=== PATIENT | male | born 2000 | race Caucasian/White ===

== ENCOUNTER 2019-09-30 17:02 | Emergency (ER) | payer OTHER, MEDICAID ==
--- OUTSIDE RECORDS SUMMARY | 2019-09-30 17:11 | XMS REPORT | Summary of Care ---
:2000 Author Organization [facility] Address [address] [place] [address] Care Team Providers Name Role Phone Janes Medina MD Primary Care Provider Encounter Details Date Type Department Care Team Description 08/20/2019 Hospital Encounter [facility] Clinical Status post kidney transplant; Pathology at Kidney replaced by transplant [facility] [address] [place] [address] Allergies No Known Allergiesdocumented as of this encounter (statuses as of 08/21/2019) Medications Medication Sig Dispensed Refills Start Date End Date Status metoprolol (TOPROL-XL) Take 1 tablet 30 tablet 5 02/28/2019 02/28/2020 Active 100 MG 24 hr by mouth tabletIndications: nightly Kidney replaced by transplant, Hypertension associated with transplantation sodium chloride flush Inject 10 mLs 100 Syringe 5 03/14/2019 Active 0.9 % SOLN into the vein as needed (prn for before and after infusion and prn) mycophenolic acid Take 2 tablets 120 tablet 5 03/26/2019 Active (MYFORTIC) 180 MG by mouth Two delayed-release Times Daily tabletIndications: Kidney replaced by transplant tacrolimus (PROGRAF) 1 Take 2 capsules 120 capsule 5 03/30/20192019 Active MG capsuleIndications: by mouth Two Kidney replaced by Times Daily transplant losartan (COZAAR) 50 Take 1 tablet 30 tablet 5 05/07/2019 05/05/2020 Active MG tabletIndications: by mouth daily Status post kidney transplant, 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 pantoprazole Take 1 tablet 30 tablet 5 05/07/2019 05/05/2020 Active (PROTONIX) 20 MG by mouth daily tabletIndications: Status post kidney transplant predniSONE 5 MG Oral Take 1 tablet 30 tablet 5 06/25/2019 Active Tablet by mouth daily (DELTASONE)Indications : Kidney replaced by transplant amLODIPine Besylate 10 Take 1 tablet 30 tablet 5 08/20/2019 08/18/2020 Active MG Oral Tablet by mouth daily (NORVASC)Indications: Kidney replaced by transplant, Secondary hypertension due to renal disease documented as of this encounter (statuses as of 08/21/2019) Active Problems Problem Noted Date NICHOLAS (acute kidney injury) 02/26/2019 History of right inguinal hernia 04/12/2017 Renal transplant recipient 01/18/2016 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 Hyperparathyroidism due to renal insufficiency 02/13/2015 CKD (chronic kidney disease) requiring chronic dialysis 08/11/2014 Hyperphosphatemia 08/11/2014 HTN (hypertension) 08/11/2014 S/p nephrectomy bilateral 10/21/2013 Hemolytic-uremic syndrome, 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 Immunosuppressive management encounter following kidney transplant documented as of this encounter (statuses as of 08/21/2019) Resolved Problems Problem Noted Date Resolved Date Kidney transplant candidate 01/18/2016 01/22/2016 Hypertension 12/03/2014 12/03/2014 Chronic kidney disease, stage II (mild) 08/08/2012 04/05/2014 documented as of this encounter (statuses as of 08/21/2019) Immunizations Name Administration Dates Next Due [id number] Quadrivalent >= 3yo 05/11/2015 Influenza Quad IM Pres Free (0.5 mL dose) 08/20/2019 08/20/2020 Influenza Split Trivalent preservative free 05/08/2018, 05/03/2016 05/08/2019 documented as of this encounter Social History Tobacco Use Types Packs/Day Years Used Date Never Smoker Smokeless Tobacco: Never Used Alcohol Use Drinks/Week oz/Week Comments No Sex Assigned at Date Recorded Not on file Job Start Date Occupation Industry Not on file Not on file Not on file Travel History Travel Start Travel End No recent travel history available. documented as of this encounter Last Filed Vital Signs Not on filedocumented in this encounter Plan of Treatment Date Type Specialty Care Team Description 10/01/2019 Follow-Up Transplant Amanuel Blancas MD [address] [facility] [address] [place] [address] [phone] Name Type Priority Associated Diagnoses Date/Time BK quantitative PCR Lab Routine Status post kidney 08/20/2019 8:15 AM EST transplant Name Type Priority Associated Diagnoses Order Schedule BK quantitative PCR Lab Timed Status post kidney As Needed for 1 transplant Occurrences starting 08/20/2019 until 08/20/2019 Health Maintenance Due Date Last Done Comments MMR Vaccines (1 of 1 - 11/09/1999 Standard series) Varicella Vaccines (1 of 2 - 11/09/1999 2-dose childhood series) Pneumococcal Vaccine: 2004 Pediatrics (0 to 5 Years) and At-Risk Patients (6 to 64 Years) (1 of 3 - PCV13) DTaP,Tdap,and Td Vaccines (1 2005 - Tdap) HPV Vaccines (1 - Male 2-dose 2009 series) Pneumococcal Vaccine: 65+ 11/09/2063 Years (1 of 2 - PCV13) HIV Screening Completed 01/18/2016, 12/03/2015 Influenza Vaccine Completed 08/20/2019, 05/08/2018, 05/03/2016 HIB Vaccines Aged Out No longer eligible based on patient's age to complete this topic Hepatitis A Vaccines Aged Out No longer eligible based on patient's age to complete this topic Hepatitis B Vaccines Aged Out No longer eligible based on patient's age to complete this topic IPV Vaccines Aged Out No longer eligible based on patient's age to complete this topic documented as of this encounter Implants Implanted Type Area Dairy Tester Device Shelf Model / Identifier Expiration Date Serial / Lot Dial- Proguide- 14.5fr X 23cmttc - [id number] Right: [facility] 2015 [id number] / Implanted: Qty: 1 on 10/21/2013 by Yonis Espinoza MD at [facility] 3N Neck SYSTEMS / [id number] Description:HEMODIALYSIS CATHETER Cath Radha Flx Arc 2 Cf Adlt - [id number] N/A: Abdomen MEDIGROUP 08/30/2014 [id number] / Implanted: Qty: 1 on 10/21/2013 by Yonis Espinoza MD at OR 3N / [id number] Dial- Proguide- 14.5fr X 23cmttc - [id number] Right: Neck [employer] [id number] / Implanted: Qty: 1 on 08/11/2014 by Manda Ashford MD at OR [employer] / [id number] Dial-Decathlon Df 16fr X 19ttc - [id number] Right: Vein [employer] [id number] / Implanted: Qty: 1 on 03/01/2019 by Shaan Weiner MD at OR [facility] [id number] / [id number] documented as of this encounter Procedures Procedure Name Priority Date/Time Associated Comments Diagnosis DSA SCREEN, HOLD Routine 08/20/2019 8:15 Status post kidney Results for this AM EST transplant procedure are in the results section. CBC AND DIFFERENTIAL Routine 08/20/2019 8:15 Kidney replaced by Results for this AM EST transplant procedure are in the results section. ALT Routine 08/20/2019 8:15 Results for this AM EST procedure are in the results section. AST Routine 08/20/2019 8:15 Results for this AM EST procedure are in the results section. PROTEIN, TOTAL Routine 08/20/2019 8:15 Results for this AM EST procedure are in the results section. ALKALINE PHOSPHATASE Routine 08/20/2019 8:15 Results for this AM EST procedure are in the results section. BILIRUBIN, DIRECT Routine 08/20/2019 8:15 Results for this AM EST procedure are in the results section. BILIRUBIN, TOTAL Routine 08/20/2019 8:15 Results for this AM EST procedure are in the results section. RENAL FUNCTION PANEL Routine 08/20/2019 8:15 Kidney replaced by Results for this AM EST transplant procedure are in the results section. TOTAL PROTEIN Routine 08/20/2019 8:03 Status post kidney Results for this (MG/DL),URINE AM EST transplant procedure are in the results section. TACROLIMUS TROUGH Routine 08/20/2019 8:03 Kidney replaced by Results for this AM EST transplant procedure are in the results section. CREATININE, URINE, Routine 08/20/2019 8:03 Status post kidney Results for this RANDOM AM EST transplant procedure are in the results section. URINALYSIS WITH Routine 08/20/2019 8:03 Kidney replaced by Results for this MICROSCOPIC AM EST transplant procedure are in the results section. documented in this encounter Results Protein, total (08/20/2019 8:15 AM EST) Total Protein 7.0 6.4 - 8.3 g/dL [facility] Pathology Specimen Plasma Performing Organization Address [facility] Phone Number [facility] CLINICAL PATHOLOGY [address] [place] [address] [phone] [facility] [address] [place] [address] Pathology Bilirubin, total (08/20/2019 8:15 AM EST) Bilirubin, Total 0.5 <1.2 mg/dL [facility] Pathology Specimen Plasma Performing Organization Address [facility] Phone Number [facility] PATHOLOGY [address] [place] [phone] [facility] [address] [place] [phone] Pathology Bilirubin, direct (08/20/2019 8:15 AM EST) Bilirubin, Direct <0.2 <0.3 mg/dL [facility] Pathology Specimen Plasma Performing Organization Address [facility] Phone Number [facility] PATHOLOGY [address] [place] [phone] [facility] [address] [place] [phone] Pathology AST (08/20/2019 8:15 AM EST) AST/SGO 16 <40 U/L [facility] Pathology Specimen Plasma Performing Organization Address [facility] Phone Number [facility] CL[facility]ICAL PATHOLOGY [address] [place] [address] [phone] [facility] [address] [place] [phone] Pathology ALT (08/20/2019 8:15 AM EST) ALT/SGP 21 <41 U/L [facility] Pathology Specimen Plasma Performing Organization Address [facility] Phone Number [facility] PATHOLOGY [address] [place] [phone] [facility] [address] [place] [address] Pathology Alkaline phosphatase (08/20/2019 8:15 AM EST) Alkaline Phosphatase 76 40 - 129 U/L [facility] Pathology Specimen Plasma Performing Organization Address [facility] Phone Number [facility] CLINICAL PATHOLOGY [address] [place] [address] [facility] [address] [place] [address] Pathology Renal function panel (08/20/2019 8:15 AM EST) Albumin 4.5 3.5 - 5.2 g/dL [facility] Pathology Sodium 139 136 - 145 mmol/L [facility] Pathology Potassium 4.0 3.4 - 5.1 mmol/L [facility] Pathology Chloride 105 98 - 107 mmol/L [facility] Pathology Bicarbonate 23 22 - 29 mmol/L [facility] Pathology Glucose 108 70 - 140 mg/dL [facility] Pathology Blood Urea Nitrogen 24 (H) 6 - 20 mg/dL [facility] Pathology Creatinine 1.10 0.70 - 1.20 [facility] mg/dL [facility] Calcium 9.7 8.6 - 10.0 mg/dL [facility] Pathology Phosphorus 3.0 2.5 - 4.5 mg/dL [facility] Pathology GFR Non >90 >60 [facility] [place] 2009 CDK-EPI mL/min/1.73m2 [facility] GFR >90 >60 [facility] 2009 CKD-EPI mL/min/1.73m2 [facility] Pathology Specimen Plasma Performing Organization Address City/[facility] Phone Number [facility] CLINICAL PATHOLOGY [address] [place] [address] [facility] [address] [place] [address] Pathology CBC and differential (08/20/2019 8:15 AM EST) White Blood Cell 5.2 4.5 - 13 [facility] 10*3/uL [facility] Red Blood Cell 4.29 (L) 4.6 - 6.1 [facility] 10*6/uL [facility] Hemoglobin 13.2 (L) 13.5 - 18 [facility] g/dL [facility] Hematocrit 38.0 (L) 41 - 53 % [facility] Pathology Mean Cell Volume 88.6 80 - 96 fL [facility] Pathology Mean Cell Hemoglobin 30.8 27 - 33 pg [facility] Pathology Mean Cell Hgb Conc 34.7 32.0 - 36.0 [facility] g/dL [facility] Red Cell Dist Width 13.2 11.5 - 14.5 % [facility] Pathology Platelet Count 205 150 - 400 [facility] 10*3/uL [facility] Differential Type Automated Diff [facility] Pathology Neutrophil 66 % [facility] Pathology Lymphocyte 21 % [facility] Pathology Monocyte 9 % [facility] Pathology Eosinophil 4 % [facility] Pathology Basophil 0 % [facility] Pathology Abs Neutrophil 3.48 1.8 - 7.0 [facility] 10*3/uL [facility] Abs Lymphocyte 1.09 (L) 1.2 - 4.0 [facility] 10*3/uL [facility] Abs Monocyte 0.46 0 - 0.8 [facility] 10*3/uL [facility] Abs Eosinophil 0.18 0 - 0.5 [facility] 10*3/uL [facility] Abs Basophil 0.02 0 - 0.2 [facility] 10*3/uL [facility]ology Nucleated Red Blood 0 0 - 0 [facility] Cells /100{WBCs} [facility] Pathology Specimen EDTA Whole Blood Performing Organization Address City/[facility] Phone Number [facility] CLINICAL PATHOLOGY [address] [place] [address] [facility] [address] [place] [address] Pathology DSA SCREEN, HOLD (08/20/2019 8:15 AM EST) DSA Screen, Hold Specimen Held For [facility] Testing CLINICAL PATHOLOGY Specimen Serum Performing Organization Address [facility] Phone Number [facility] CLINICAL PATHOLOGY [address] [place] [address] Tacrolimus Trough (08/20/2019 8:03 AM EST) [id number] 8.8 ng/mL [facility] Comment: Clin Pathology Renal Transplant Target Values Immediate post-transplant: 10 - 15 ng/mL First 6 months: 6 - 15 ng/mL Greater than 6 months: 6 - 15 ng/mL Specimen EDTA Whole Blood Performing Organization Address [facility] Phone Number [facility] CLINICAL PATHOLOGY [address] [place] [address] [facility] [address] [place] [address] Pathology Urinalysis with microscopic (08/20/2019 8:03 AM EST) Color Yellow [facility] Pathology Clarity Clear [facility] Pathology Specific [place] 1.017 1.003 - 1.030 [facility] Pathology PH Urine 6.0 5.0 - 8.0 [facility] Pathology Total Protein UA Negative Negative mg/dL [facility] Pathology Glucose UA Negative Negative mg/dL [facility] Pathology Ketone Urine Negative Negative mg/dL [facility] Pathology Bilirubin Negative Negative [facility] Pathology Hemoglobin, Urine Negative Negative [facility] Pathology Leukocyte Esterase Negative Negative Wallace/uL [facility] Pathology Nitrite Negative Negative [facility] Pathology WBC <1 0 - 5 /HPF [facility] Pathology RBC 0 0 - 3 /HPF [facility] Pathology Mucus, UA Trace (A) None /LPF [facility] Pathology Sperm, UA <1 (A) None /[HPF] [facility] Pathology Specimen Urine Performing Organization Address [facility] Phone Number [facility] CL[facility]ICAL PATHOLOGY [address] [place] [address] [facility] [address] [place] [address] Pathology Total Protein (MG/DL),Urine, Random (08/20/2019 8:03 AM EST) Total Protein, Urine 11 mg/dl [facility] Pathology Specimen Urine Performing Organization Address [facility] Phone Number [facility] CL[facility] PATHOLOG[facility] [address] [place] [address] [facility] [address] [place] [address] Pathology Creatinine, urine, random (08/20/2019 8:03 AM EST) Creatinine, Urine 92.1 mg/dl [facility] Pathology Specimen Urine Performing Organization Address City/State/Zipcode Phone Number [facility] CLINICAL PATHOLOGY [address] [place] [address] [facility] [address] [place] [address] Pathology documented in this encounter Visit Diagnoses Diagnosis Status post kidney transplant Kidney replaced by transplant Kidney replaced by transplant documented in this encounter
[2019-09-30 17:34] VITALS: BP 154/96
--- NOTE | 2019-09-30 18:43 | UC ---
Throat Pain/Nasal Roland HPI - HPI Summary HPI Summary: 18-year-old male presents with 3 day history of progressively worsening sore throat. 18-year-old male presents with 3 day history of progressively worsening sore throat. Patient patient is status post kidney transplant from 3 years ago. Has had his flu vaccination this season. Patient patient is status post kidney transplant from 3 years ago. Has had his flu vaccination this season. - History of Current Complaint Chief Complaint: UCRespiratory Stated Complaint: SORE THROAT Time Seen by Provider: 09/30/19 18:02 Hx Obtained From: Patient Pain Intensity: 4 - Allergies/Home Medications Allergies/Adverse Reactions: Allergies Allergy/AdvReac Type Severity Reaction Status Date / Time No Known Allergies Allergy Verified 09/30/19 17:35 Home Medications: Home Medications Folic Acid TAB* [Folvite TAB*] 180 mg PO BID 03/27/19 [History Confirmed ] Losartan TAB* [Cozaar TAB*] 50 mg PO BEDTIME 03/27/19 [History Confirmed ] Metoprolol Tartrate TAB* [Lopressor TAB*] 100 mg PO DAILY 03/27/19 [History Confirmed 09/30/19] Pantoprazole TAB * [Protonix TAB*] 40 mg PO DAILY 03/27/19 [History Confirmed ] Sod Phos Di, Sarpy/K Phos Sarpy [K-Phos Neutral Tablet] 2 tab PO BID 03/27/19 [ History Confirmed 09/30/19] Tacrolimus CAP(*) [Prograf CAP(*)] 3 mg PO BID 03/27/19 [History Confirmed 09/29] amLODIPine TAB* [Norvasc 5 mg TAB*] 10 mg PO DAILY 03/27/19 [History Confirmed 09/30/19] predniSONE 10 mg TAB [Deltasone 10 MG TAB*] 1 tab PO DAILY 03/27/19 [History Confirmed 09/30/19] PMH/Surg Hx/FS Hx/Imm Hx Cardiovascular History: Hypertension GI/ History: Renal Disease - Surgical History Surgical History: Yes Surgery Procedure, Year, and Place: Kidney removal, catherers placed, Kidney transplant - Family History Known Family History: Negative: Cardiac Disease, Diabetes - Social History Occupation: Employed Full-time Lives: Alone Alcohol Use: None Substance Use Type: None Smoking Status (MU): Never Smoked Tobacco Review of Systems All Other Systems Reviewed And Are Negative: Yes Constitutional: Negative: Fever, Chills Skin: Negative: Rash Eyes: Negative: Drainage, Eye Redness ENT: Positive: Sore Throat. Negative: Ear Ache, Nasal Discharge, Sinus Congestion, Sinus Pain/Tenderness Respiratory: Negative: Shortness Of Breath, Cough Cardiovascular: Negative: Palpitations, Chest Pain Gastrointestinal: Negative: Abdominal Pain, Vomiting, Diarrhea, Nausea Genitourinary: Positive: Negative Musculoskeletal: Positive: Negative Neurological/Mental Status: Positive: Negative Is Patient Immunocompromised?: No Physical Exam - Summary Physical Exam Summary: GENERAL APPEARANCE: Well developed, well nourished, alert and cooperative, and appears to be in no acute distress. EYES: Conjunctiva clear. No drainage. EARS: External auditory canals and tympanic membranes clear, hearing grossly intact. NOSE: No nasal discharge. THROAT: Pharyngeal erythema. 2+ tonsils without exudate or lesions. Uvula midline. NECK: Neck supple, non-tender without lymphadenopathy. CARDIAC: Normal S1 and S2. No S3, S4 or murmurs. Rhythm is regular. There is no peripheral edema, cyanosis or pallor. Extremities are warm and well perfused. Capillary refill is less than 2 seconds. Peripheral pulses intact. LUNGS: Clear to auscultation without rales, rhonchi, wheezing or diminished breath sounds. ABDOMEN: Positive bowel sounds. Soft, nondistended, nontender. No guarding or rebound. No masses or hepatosplenomegally. MUSKULOSKELETAL: ROM intact to all extremities. No joint erythema or tenderness. Normal muscular development. Normal gait. SKIN: Skin normal color, texture and turgor with no lesions or eruptions. Triage Information Reviewed: Yes Vital Signs: Initial Vital Signs Temp 99.4 F 09/30/19 17:29 Pulse 111 09/30/19 17:29 Resp 16 09/30/19 17:29 BP 154/96 09/30/19 17:29 Pulse Ox 99 09/30/19 17:29 Vital Signs Reviewed: Yes Throat Pain/Nasal Course/Dx - Course Course Of Treatment: 18-year-old male presents with 3 day history of progressively worsening sore throat. Patient patient is status post kidney transplant from 3 years ago. Has had his flu vaccination this season. Denies fever, chills, headache, nasal congestion, postnasal drip, ear pain, cough, chest pain, shortness of breath, abdominal pain, nausea, vomiting, or diarrhea. Afebrile. Hypertensive and mildly tachycardic otherwise vital signs stable. Patient had no nasal congestion, normal TMs, pharyngeal erythema, 2+ tonsils without exudate, no cervical lymphadenopathy, clear bilateral breath sounds, and otherwise unremarkable exam. Rapid strep test was negative. Reviewed results with the patient. Recommending symptomatic treatment for a viral pharyngitis this time. He is to return here or follow-up with his primary care provider 3-5 days if symptoms persist. Anticipatory guidance warning symptoms to the patient. Verbalizes understanding and agrees with plan of care. - Differential Dx/Diagnosis Differential Diagnosis/HQI/PQRI: Mononucleosis, Pharyngitis, Tonsillitis, URI Provider Diagnosis: Acute viral pharyngitis Discharge ED - Sign-Out/Discharge Documenting (check all that apply): Patient Departure All imaging exams completed and their final reports reviewed: No Studies - Discharge Plan Condition: Stable Disposition: HOME Patient Education Materials: Pharyngitis (ED) Forms: *Work Release Referrals: Janes Medina MD [Primary Care Provider] - 3 Days Additional Instructions: Your rapid strep test in the clinic today was negative. Your symptoms are likely from a viral infection. Viral infections do not respond to antibiotics and are limited to the treatment of symptoms. Viral infections typically run their course in 7-10 days. Drink plenty of fluids to avoid dehydration especially if you are running any fever. Use salt water gargles several times a day. Take over the counter acetaminophen (Tylenol) according to directions as needed for pain or fever. You may also use Chloraseptic spray or Cepacol lonzenges according to directions which contain a numbing medication and can provide some temporary relief from your sore throat. Return here or follow up with your primary care provider in 3-5 days if symptoms persist. Seek immediate medical attention in the emergency room if you have fever greater than 100.5 F despite taking acetaminophen or ibuprofen, are unable to swallow or develop drooling, are unable to open your mouth fully, are unable to eat or drink, have pain that is not relieved with over the counter pain medication, or have any difficulty breathing. - Billing Disposition and Condition Condition: STABLE Disposition: Home
== END 2019-09-30 18:50 | disposition home or self-care (01) ==
LOC: UCEAST 17:02
DX: J02.8 Acute pharyngitis due to other specified organisms (principal); I10 Essential (primary) hypertension; Z79.899 Other long term (current) drug therapy; Z94.0 Kidney transplant status
CPT/HCPCS: 87651; 99211; G0463